=== PATIENT | female | born 1985 | race African-American/Black ===

== ENCOUNTER 2017-12-18 08:47 | Emergency (ER) | payer OTHER, MEDICAID ==
[~2017-12-18] VITALS: Ht 165.1 cm; Wt 90.7 kg
[2017-12-18] MEDS ORDERED: [UNRECOGNIZED DRUG - OTHER] PO (09:03)
[2017-12-18 09:18] VITALS: BP 116/52
[2017-12-18] MEDS ORDERED: BACTROBAN NASAL1 GM NASAL (09:19)
[2017-12-18] MEDS ORDERED: BACTRIM DS TAB1 EACH PO (09:19)
== END 2017-12-18 09:49 | disposition home or self-care (01) ==
LOC: M.ERS 08:47
DX: L02.411 Cutaneous abscess of right axilla (principal); N61.1 Abscess of the breast and nipple; L02.416 Cutaneous abscess of left lower limb; Z88.0 Allergy status to penicillin

== ENCOUNTER 2018-05-07 20:17 | Emergency (ER) | payer OTHER, MEDICAID ==
[~2018-05-07] VITALS: Ht 162.6 cm; Wt 117.9 kg
[~2018-05-07 20:17] MED LIST: BACTRIM DS TAB1 EACH PO; BACTROBAN NASAL1 GM NASAL; [UNRECOGNIZED DRUG - OTHER] PO
[2018-05-07 21:01] VITALS: BP 152/97
== END 2018-05-07 21:02 | disposition left against medical advice (07) ==
LOC: M.ERS 20:17
DX: Z53.21 Procedure and treatment not carried out due to patient leaving prior to being seen by health care provider (principal)